=== PATIENT | female | born 1980 | race Caucasian/White ===

== ENCOUNTER 2017-07-21 06:30 | Emergency (ER) | payer MEDICAID ==
[2017-07-21 06:30] VITALS: BMI 34.7
[2017-07-21] MEDS ORDERED: Albuterol-Ipratrop 3 mg / 0.5 (3 ml) UD ONE (06:36)
[2017-07-21] MEDS ORDERED: Albuterol-Ipratrop 3 mg / 0.5 (3 ml) UD IH STA ×2 (06:39→07:10)
[2017-07-21 07:15] VITALS: TEMP 97.8
--- NOTE | 2017-07-21 07:15 | ED PDOC ---
Arrival/HPI - General Chief Complaint: Respiratory Distress Time Seen by Provider: 07/21/17 06:38 Historian: Patient, Spouse - Critical Care Narrative Critical Care (Text): you were treated in the ED today for hx of asthma and having an asthma flare-up with wheezing and dry cough but otherwise without any nausea/vomiting/headache/ dizziness/chest pain/abdomen pain/numbness/tingling/loss of limb function/pain with urination. 07/21/17 07:12 - History of Present Illness Time/Duration: 24 hours Symptom Onset: Gradual Symptom Course: Unchanged Activities at Onset: Rest Context: Sitting Past Medical History - Provider Review Nursing Documentation Reviewed: Yes - Travel History Have you recently traveled outside [place] w/in the past 3 mons?: No - Infectious Disease Hx of Infectious Diseases: None - Tetanus Immunization Tetanus Immunization: Unknown - Pulmonary Hx Asthma: Yes - Neurological Hx Neurological Disorder: No - Renal Hx Renal Disorder: No - Endocrine/Metabolic Hx Endocrine Disorders: No - Hematological/Oncological Hx Blood Disorders: No - Integumentary Hx Dermatological Disorder: No - Musculoskeletal/Rheumatological Hx Falls: No - Psychiatric Hx Depression: No Hx Emotional Abuse: No Hx Physical Abuse: No Hx Substance Use: No - Past Surgical History Past Surgical History: No Previous - Anesthesia Hx Anesthesia: No Hx Anesthesia Reactions: No Hx Malignant Hyperthermia: No - Suicidal Assessment Feels Threatened In Home Enviroment: No Family/Social History - Physician Review Nursing Documentation Reviewed: Yes Family/Social History: No Known Family HX Smoking Status: Never Smoked Hx Alcohol Use: No Hx Substance Use: No Hx Substance Use Treatment: No Allergies/Home Meds Allergies/Adverse Reactions: Allergies No Known Allergies Allergy (Verified 09/10/11 10:27) Home Medications: Home Meds Medication Instructions Recorded Confirmed Prednisone [Deltasone] 10 mg PO PRN 03/08/15 03/08/15 Review of Systems - Review of Systems Constitutional: Normal Eyes: Normal ENT: Normal Respiratory: SOB, Wheezing Cardiovascular: Normal Gastrointestinal: Normal Genitourinary Female: Normal Musculoskeletal: Normal Skin: Rash Neurological: Normal Endocrine: Normal Hemo/Lymphatic: Normal Psychiatric: Normal Physical Exam Vital Signs Reviewed: Yes Vital Signs Temp Pulse Resp BP Pulse Ox 07/21/17 07:14 97.8 F 102 H 17 144/66 99 07/21/17 06:42 144/66 07/21/17 06:39 96 Temperature: Afebrile Blood Pressure: Hypertensive Pulse: Tachycardic Respiratory Rate: Normal Appearance: Positive for: Well-Appearing, Non-Toxic, Comfortable Pain Distress: None Mental Status: Positive for: Alert and Oriented X 3 - Systems Exam Head: Present: Atraumatic, Normocephalic Pupils: Present: PERRL Extroacular Muscles: Present: EOMI Conjunctiva: Present: Normal Ears: Present: Normal Mouth: Present: Moist Mucous Membranes Pharnyx: Present: Normal Nose (External): Present: Atraumatic Nose (Internal): Present: Normal Inspection Neck: Present: Normal Range of Motion Respiratory/Chest: Present: Good Air Exchange, Wheezes. No: Clear to Auscultation, Respiratory Distress, Accessory Muscle Use, Decreased Breath Sounds, Rales, Retracting, Rhonchi, Tachypneic, Tender to Palpation, Other Abdomen: No: Tenderness, Distention, Normal Bowel Sounds, Peritoneal Signs, Rebound, Guarding, McBurney's Point Tender, Rovsing's Sign Present, Hernias, Feeding Tubes, Ostomy Tubes, Mass/Organomegaly, Scars, Other Back: Present: Normal Inspection Upper Extremity: Present: Normal Inspection Lower Extremity: Present: Normal Inspection Neurological: Present: GCS=15, CN II-XII Intact, Speech Normal, Motor Func Grossly Intact Skin: Present: Warm, Normal Color (mild scaly type rash generalized trunk without rednesss/fluctuance/crepitus.), Other Psychiatric: Present: Alert, Oriented x 3, Normal Insight, Normal Concentration Medical Decision Making ED Course and Treatment: you were treated in the ED today for hx of asthma and having an asthma flare-up with wheezing and dry cough and a noted new rash with unsure if new detergent involved but otherwise without any new foods/travel/sick contact/nausea/vomiting /back of throat swelling or irritation/headache/dizziness/chest pain/abdomen pain/numbness/tingling/loss of limb function/pain with urination. You were otherwise breathing easily, smiling and talking with your , good strength /sensation, walking easily, wheezing lungs, no abdomen tenderness, mild scaly type rash generalized trunk without rednesss/sign of infection, no back of throat redness/swelling and is wide open with normal voice, no fever temp 97.8, stable heart rate 102, stable breathing rate 17, excellent oxygen level 97% room air, elevated blood pressure 144/66 which we recommend repeat in 2-3 days primary care office to determine further treatment, nebulizer treatments, prednisone, observation done in the ED with improvement, had a long discussion regarding chest xray evaluation but you refused at this time and stated feeling improved with treatments for ashtma flare-up, counselled to monitor symptoms and thus discharged home with . 1. Recommend prednisone as directed for asthma flare-up. 2. Recommend albuterol as directed for wheezing/asthma flare- up. recommend benadryl/pepcid as directed for rash treatment. 3. Recommend follow-up primary care 2-3 days to review symptoms, referral to pulmonary clinic to review your symptoms, referral to allergy clinic to review rash. 4. If any worsening pain, fever, chills, nausea, vomiting, difficulty breathing, numbness, loss of limb function, pain with urination or any medical condition then return to the ED. 07/21/17 07:16 07/21/17 08:07 07/21/17 08:10 Reassessment Condition: Re-examined, Improved - Medication Orders Current Medication Orders: Discontinued Medications Albuterol/Ipratropium (Duoneb 3 Mg/0.5 Mg (3 Ml) Ud) 3 ml IH STAT STA Stop: 07/21/17 06:40 Last Admin: 07/21/17 06:57 Dose: 3 ml Albuterol/Ipratropium (Duoneb 3 Mg/0.5 Mg (3 Ml) Ud) 3 ml IH STAT STA Stop: 07/21/17 07:11 Last Admin: 07/21/17 07:31 Dose: 3 ml Prednisone (Prednisone Tab) 60 mg PO STAT ONE Stop: 07/21/17 07:10 Last Admin: 07/21/17 07:31 Dose: 60 mg Disposition/Present on Arrival - Present on Arrival Any Indicators Present on Arrival: No History of DVT/PE: No History of Uncontrolled Diabetes: No Urinary Catheter: No History of Decub. Ulcer: No History Surgical Site Infection Following: None - Disposition Have Diagnosis and Disposition been Completed?: Yes Diagnosis: Asthma Disposition: HOME/ ROUTINE Disposition Time: 08:10 Patient Plan: Discharge Condition: IMPROVED Discharge Instructions (ExitCare): Asthma, Adult (DC) Additional Instructions: you were treated in the ED today for hx of asthma and having an asthma flare-up with wheezing and dry cough and a noted new rash with unsure if new detergent involved but otherwise without any new foods/travel/sick contact/nausea/vomiting /back of throat swelling or irritation/headache/dizziness/chest pain/abdomen pain/numbness/tingling/loss of limb function/pain with urination. You were otherwise breathing easily, smiling and talking with your , good strength /sensation, walking easily, wheezing lungs, no abdomen tenderness, mild scaly type rash generalized trunk without rednesss/sign of infection, no back of throat redness/swelling and is wide open with normal voice, no fever temp 97.8, stable heart rate 102, stable breathing rate 17, excellent oxygen level 97% room air, elevated blood pressure 144/66 which we recommend repeat in 2-3 days primary care office to determine further treatment, nebulizer treatments, prednisone, observation done in the ED with improvement, had a long discussion regarding chest xray evaluation but you refused at this time and stated feeling improved with treatments for ashtma flare-up, counselled to monitor symptoms and thus discharged home with . 1. Recommend prednisone as directed for asthma flare-up. 2. Recommend albuterol as directed for wheezing/asthma flare- up. recommend benadryl/pepcid as directed for rash treatment. 3. Recommend follow-up primary care 2-3 days to review symptoms, referral to pulmonary clinic to review your symptoms, referral to allergy clinic to review rash. 4. If any worsening pain, fever, chills, nausea, vomiting, difficulty breathing, numbness, loss of limb function, pain with urination or any medical condition then return to the ED. Prescriptions: Albuterol HFA [Ventolin HFA 90 mcg/actuation (8 g)] 2 puff IH [id number] PRN 30 Days #1 ea PRN Reason: asthma/wheezing DiphenhydrAMINE [Benadryl] 25 mg PO Q8 PRN 5 Days #30 cap PRN Reason: rash/itching Famotidine [Pepcid] 20 mg PO DAILY 5 Days #5 tab Prednisone [Deltasone] 20 mg PO DAILY 5 Days #5 tablet Referrals: [facility] Eric Funez, [Primary Care Provider] - Follow up with primary Forms: [employer] (Ukrainian)
[2017-07-21 08:28] VITALS: BP 122/72; PULSE 100; RESP 20; O2SAT 96
== END 2017-07-21 08:28 | disposition home or self-care (01) ==
LOC: ED 06:30
DX: J45.909 Unspecified asthma, uncomplicated (principal)